=== PATIENT | female | born 1950 | race Caucasian/White ===

== ENCOUNTER 2023-11-27 04:09 | Emergency (ER) | payer MEDICARE, OTHER ==
[~2023-11-27] VITALS: Ht 160 cm; Wt 70.8 kg
[2023-11-27 04:31] VITALS: TEMP 97.9
[2023-11-27] MEDS ORDERED: ONDANSETRON HCL/PF 4 MG/2 ML VIAL ONE (04:40)
[2023-11-27] MEDS ORDERED: IBUPROFEN 400 MG TABLET ONE (04:46)
[2023-11-27] MEDS: IV NS 0.9% 1,000 ML BAG IV ONE (05:00)
[2023-11-27] MEDS: ONDANSETRON HCL/PF 4 MG/2 ML VIAL IVP ONE (05:00)
[2023-11-27 05:16] LABS: BASOPHILS % (AUTO) 0.2 % (0.0-2.0); EOSINOPHILS # (AUTO) 0.1 K/uL (0.0-0.7); EOSINOPHILS % (AUTO) 1.3 % (0.0-6.0); HEMATOCRIT 39 % (33-45); HEMOGLOBIN 13.1 g/dL (11.5-14.8); LYMPHOCYTES # (AUTO) 1.1 K/uL (0.8-4.8); LYMPHOCYTES % (AUTO) 13.1 % (20.0-44.0); MEAN CORPUSCULAR HEMOGLOBIN 28 PG (26.0-33.0); MEAN CORPUSCULAR HGB CONC 34 g/dl (31.0-36.0); MEAN CORPUSCULAR VOLUME 83 fL (82-100); MONOCYTES # (AUTO) 0.7 K/uL (0.1-1.30); MONOCYTES % (AUTO) 8.7 % (2.0-12.0); NEUTROPHILS # (AUTO) 6.2 K/uL (1.8-8.9); NEUTROPHILS % (AUTO) 76.7 % (43.0-81.0); PLATELET COUNT (AUTO) 253 K/uL (150-450); RED BLOOD CELL COUNT(AUTO) 4.71 MIL/uL (4.0-5.2); WHITE BLOOD COUNT (AUTO) 8.1 K/uL (4.3-11.0)
[2023-11-27] MEDS: IBUPROFEN 400 MG TABLET PO ONE (05:25)
[2023-11-27 05:32] LABS: APPEARANCE,URINE SLIGHTLY CLOUDY (CLEAR); BILIRUBIN,URINE NEGATIVE (NEGATIVE); BLOOD, URINE NEGATIVE Ery/uL (NEGATIVE); COLOR,URINE YELLOW (YELLOW); KETONES,URINE NEGATIVE (NEGATIVE); LEUKOCYTE ESTERASE ,URINE NEGATIVE (NEGATIVE); NITRITE, URINE NEGATIVE (NEGATIVE); PH,URINE 7.5 (5.0-8.0); PROTEIN,URINE 1+ mg/dl (NEGATIVE); UGLUCOSE NEGATIVE (NEGATIVE); UROBILINOGEN,URINE 0.2 EU/dL (0.2)
[2023-11-27 05:33] LABS: ALANINE AMINOTRANSFERASE 58 U/L (12-78); ALBUMIN 3.4 g/dL (3.4-5.0); ALKALINE PHOSPHATASE 106 U/L (46-116); ASPARTATE AMINOTRANSFERASE 45 U/L (15-37); BILIRUBIN,DIRECT 0.2 mg/dL (0.0-0.2); BILIRUBIN,TOTAL 0.5 mg/dL (0.2-1.0); CALCIUM, SERUM 9.5 mg/dL (8.5-10.1); CARBON DIOXIDE 30 mmol/L (21-32); CHLORIDE 100 mmol/L (98-107); GLUCOSE 100 mg/dL (74-106); POTASSIUM 4.3 mmol/L (3.5-5.1); SODIUM SERUM 137 mmol/L (136-145); UREA NITROGEN, BLOOD 16 mg/dL (7-18)
[2023-11-27 05:40] LABS: INR 0.93 (0.91-1.10); PARTIAL THROMBOPLASTIN TIME 24.1 SEC (24.3-34.3); PROTHROMBIN TIME 9.9 SECS (9.2-11.1)
[2023-11-27 12:32] VITALS: BP 106/54; O2SAT 98
== END 2023-11-27 12:32 | disposition home or self-care (01) ==
LOC: ER 04:15
DX: S60.221A Contusion of right hand, initial encounter (principal); S80.00XA Contusion of unspecified knee, initial encounter; R53.1 Weakness; R55 Syncope and collapse; M79.644 Pain in right finger(s); W18.39XA Other fall on same level, initial encounter; Y93.89 Activity, other specified; Y92.89 Other specified places as the place of occurrence of the external cause; Y99.8 Other external cause status
CPT/HCPCS: 99285; 96374; 70450; 71045; 96375; 93005; 73130; 73564 ×2; 85025; 80048; 80076; 81003; 36415; 84484 ×2; 85730; J2405; J7030

== ENCOUNTER 2024-12-01 15:19 | Emergency (ER) | payer MEDICARE, OTHER ==
[~2024-12-01] VITALS: Ht 157.5 cm; Wt 62.1 kg
[2024-12-01] MEDS ORDERED: BENZ-13 PO (17:02)
[2024-12-01] MEDS ORDERED: PSEU120T99 PO (17:02)
[2024-12-01 17:17] VITALS: BP 130/75; TEMP 98.7; O2SAT 98
== END 2024-12-01 17:17 | disposition home or self-care (01) ==
LOC: ER 15:27
DX: J02.9 Acute pharyngitis, unspecified (principal); B97.89 Other viral agents as the cause of diseases classified elsewhere; E78.5 Hyperlipidemia, unspecified; R07.9 Chest pain, unspecified; Z87.01 Personal history of pneumonia (recurrent); Z86.69 Personal history of other diseases of the nervous system and sense organs; Z85.3 Personal history of malignant neoplasm of breast; Z60.2 Problems related to living alone
CPT/HCPCS: 71045-TC